=== PATIENT | female | born 1980 | race Caucasian/White ===

== ENCOUNTER 2023-05-13 19:52 | Emergency (ER) | payer SELFPAY ==
[~2023-05-13] VITALS: Ht 165 cm; Wt 122.5 kg
--- NOTE | 2023-05-13 20:20 | ED Lower Extremity ---
General Chief Complaint: Lower Extremity Stated Complaint: FALL/RIGHT ANKLE/FOOT PAIN/SWELLING Nursing Triage Note: PT PRESENTS TO ED AFTER FALLING AT HOME FROM TRIPPING OVER HER DOG. PT TWISTED HER RIGHT ANKLE AND IS UNABLE TO BEAR WEIGHT ON IT. PT ALSO REPORTS HITTING BACK OF HEAD ON SIDING OF HOUSE. PT NOT ON THINNERS. DENIES LOC. Source: patient Exam Limitations: no limitations (GWEN GARVEY APRN) History of Present Illness Date Seen by Provider: May 13, 2023 Time Seen by Provider: 20:11 Initial Comments 42-year-old female presents to the ER with complaints of right ankle and foot pain after a fall which occurred at 3:45 PM. She states that she got tripped on her dog's leash and when she fell her ankle twisted inwards and she landed on her foot. She complains of pain in her entire foot. She states she also hit the back of her head. She does not take blood thinners. She denies loss of consciousness. Denies vomiting or any abnormal behavior. Denies amnesia. She took Tylenol after the injury, states it did not help the pain. (GWEN GARVEY APRN) Allergies and Home Medications Allergies Coded Allergies: aspirin (Verified Allergy, Unknown, 05/13/23) Patient Home Medication List Home Medication List Reviewed: Yes (GWEN GARVEY APRN) Review of Systems Constitutional: see HPI Musculoskeletal: see HPI (GWEN GARVEY APRN) Past Qtvauql-Yknqje-Yyvstd Hx Patient Social History Tobacco Use?: Yes Tobacco type used: Cigarettes Smoking Status: Current Everyday Smoker Substance use?: No Alcohol Use?: No Pt feels they are or have been: No (GWEN GARVEY APRN) Past Medical History Last Menstrual Period: Apr 29, 2023 (GWEN GARVEY APRN) Physical Exam Vital Signs Vital Signs - First Documented 05/13/23 20:03 Temp 37.0 Pulse 112 Resp 20 B/P (MAP) 144/90 (108) Pulse Ox 95 O2 Delivery Room Air (MATT CHEATHAM MD) Vital Signs Capillary Refill : Less Than 3 Seconds (GWEN GARVEY APRN) Height, Weight, BMI Height: '" Weight: lbs. oz. kg; 44.00 BMI Method: General Appearance: WD/WN, no apparent distress Neck: supple, normal inspection Cardiovascular: regular rate, rhythm Respiratory: lungs clear, normal breath sounds, no respiratory distress, no accessory muscle use Ankles: right ankle limited range of motion, right ankle pain, right ankle soft tissue tenderness, right ankle swelling Feet: right foot pain, right foot other (Sensation intact distally, cap refill less than 2 seconds, pulses intact) Neurologic/Psychiatric: alert, normal mood/affect Skin: normal color, warm/dry (GWEN GARVEY APRN) Progress/Results/Core Measures Results/Orders Medications Given in ED Current Medications Medications Dose Ordered Sig/Jordi Route Start Time Stop Time Status Last Admin Dose Admin Acetaminophen 1,000 mg ONCE ONCE PO 05/13/23 20:30 05/13/23 20:31 DC 05/13/23 20:37 1,000 MG Ketorolac Tromethamine 30 mg ONCE ONCE IM 05/13/23 20:30 05/13/23 20:31 DC 05/13/23 20:37 30 MG (MATT CHEATHAM MD) Vital Signs/I&O 05/13/23 05/13/23 20:03 21:12 Temp 37.0 Pulse 112 85 Resp 20 20 B/P (MAP) 144/90 (108) 120/82 Pulse Ox 95 O2 Delivery Room Air (MATT CHEATHAM MD) Blood Pressure Mean: 108 Progress Progress Note : Progress Note Patient seen and evaluated, resting comfortably in recliner, no acute distress. Based on exam and symptoms, x-ray of right foot and ankle ordered. Consider CT head, but deferred due to the [place] CT head rule deemed it unnecessary. 2049 x-ray reviewed. Negative for acute abnormality. Will provide Marcell bandage and prescription for crutches. Results discussed with patient. Discharge in structions and return precautions provided. (GWEN GARVEY APRN) Departure Impression Primary Impression: Sprain and strain of ankle Disposition: HOME, SELF-CARE Condition: Stable Departure-Patient Inst. Decision time for Depature: 20:56 (GWEN GARVEY APRN) Referrals: NO,LOCAL PHYSICIAN (PCP/Family) Primary Care Physician Patient Instructions: Ankle Sprain (DC) Add. Discharge Instructions: Wear the Mracell bandage for compression. Ice your foot and ankle for 20 minutes at a time several times a day for the next couple of days. Take Tylenol or ibuprofen as needed for pain. Use the crutches to keep weight off of your foot and ankle. Follow-up with your primary care provider if your pain does not improve in about a week. Return for any new, concerning, or worsening symptoms. All discharge instructions reviewed with patient and/or family. Voiced understanding. ATTENDING PHYSICIAN NOTE: I was physically present as attending physician in the emergency department during the care of this patient, but I was not directly involved in the decision making or delivery of care for this patient. (MATT CHEATHAM MD) GWEN GARVEY APRN May 13, 2023 20:20 MATT CHEATHAM MD May 14, 2023 02:01
[2023-05-13] MEDS ORDERED: ACETAMINOPHEN 500 MG TAB (TYLENOL) PO ONE (20:30)
[2023-05-13] MEDS ORDERED: KETOROLAC 30 MG/ML VIAL IM ONE (20:30)
--- NOTE | 2023-05-13 20:38 | Diagnostic Imaging Report ---
INDICATION: Foot pain FINDINGS: Three views of the right foot show no fracture, dislocation or other acute abnormalities. IMPRESSION: Negative right foot. Dictated by: Dictated on workstation # [id number]
--- NOTE | 2023-05-13 20:40 | Diagnostic Imaging Report ---
INDICATION: Right ankle pain FINDINGS: Three views of the right ankle show no fracture or dislocation. IMPRESSION: Negative right ankle. Dictated by: Dictated on workstation # [id number]
[2023-05-13 21:12] VITALS: BP 120/82
== END 2023-05-13 21:13 | disposition home or self-care (01) ==
LOC: ER 19:55
DX: S96.911A Strain of unspecified muscle and tendon at ankle and foot level, right foot, initial encounter (principal); F17.210 Nicotine dependence, cigarettes, uncomplicated; Z88.6 Allergy status to analgesic agent; W01.198A Fall on same level from slipping, tripping and stumbling with subsequent striking against other object, initial encounter; X50.1XXA Overexertion from prolonged static or awkward postures, initial encounter; Y92.009 Unspecified place in unspecified non-institutional (private) residence as the place of occurrence of the external cause
CPT/HCPCS: 73610; 73630